=== PATIENT | female | born 1925 | race Caucasian/White ===

== ENCOUNTER 2017-11-24 12:49 | Inpatient (IN) | payer MEDICARE, OTHER ==
[~2017-11-24] VITALS: Ht 167.6 cm; Wt 71.6 kg
[~2017-11-24 12:49] MED LIST: ACEDIPPM PO; ALBU90OI INH; ASPI81CH PO; AZIT250 PO; AZIT500 PO; Albuterol2.5 MG/0.5 INH; CEFP200 PO; CEPH500; CEPH500 PO; CLAR500 PO; COLE625 PO; Citalopram HBr10 MG PO; DIGO.125 PO; FISH1000 PO; FURO20 PO; FURO40 PO; Hydrocodone-Ap1 EA23 PO; LAVAP17G PO; LEVFLO500 PO; LOSA25 PO; METO50 PO; MULVITA PO; Megestrol Aceta40 MG PO; NIAC250ER; NIAC500 PO; OMEP20ER PO; OMEP40CA12 PO; PRED20 PO; Potassium20 MEQ/11 PO; Prednisone20 MG PO; Prilosec Otc20 MG PO; RANI150 PO; Ranitidine HCl300 MG; Ranitidine HCl300 MG PO; SACC250C PO; SODCHL.65S; Venlafaxine HCl75 MG PO
[2017-11-24] MEDS ORDERED: VENL75ER PO (13:05)
[2017-11-24] MEDS ORDERED: Hydrocodone-Ap1 EA23 PO (13:06)
[2017-11-24] MEDS ORDERED: PANT20 PO (13:06)
[2017-11-24 15:05] LABS: BASOPHILS ABSOLUTE AUTO 0.03 K/mm3 (0.00-0.23); BASOPHILS PERCENT AUTO 0 % (0-2); EOSINOPHILS ABSOLUTE AUTO 0.06 K/mm3 (0.00-0.68); EOSINOPHILS PERCENT AUTO 0 % (0-6); Hematocrit 36.8 % (33.0-51.0); Hemoglobin 11.9 g/dL (11.5-16.0); IMMATURE GRAN ABSOLUTE AUTO 0.14 K/mm3 (0.00-0.10); IMMATURE GRAN PERCENT AUTO 1 % (0-1); LYMPHOCYTES ABSOLUTE AUTO 1.86 K/mm3 (0.84-5.20); LYMPHOCYTES PERCENT AUTO 13 % (21-46); MONOCYTES ABSOLUTE AUTO 0.76 K/mm3 (0.16-1.47); MONOCYTES PERCENT AUTO 5 % (4-13); Mean Corpuscular HGB 29.8 pg (26.0-34.0); Mean Corpuscular HGB Conc 32.3 g/dL (31.5-36.5); Mean Corpuscular Volume 92 fL (80-100); NEUTROPHILS ABSOLUTE AUTO 11.96 K/mm3 (1.96-9.15); NEUTROPHILS PERCENT AUTO 81 % (41-73); Platelet Count 302 K/mm3 (150-400); RDW Coefficient Variation 15.5 % (11.7-14.2); RDW Standard Deviation 52.6 fL (35.1-46.3); Red Blood Cell Count 3.99 M/mm3 (3.80-5.20); White Blood Cell Count 14.81 K/mm3 (4.00-11.30)
[2017-11-24 15:31] LABS: Alanine Aminotransfer (ALT/SGP 16 U/L (12-78); Albumin, Blood 2.6 g/dL (3.4-5.0); Albumin/Globulin Ratio 0.5 (0.8-1.8); Alk Phos 111 U/L (50-136); Anion Gap 9 mmol/L (6-16); Aspartate Aminotrans (AST/SGOT 14 U/L (12-37); Bilirubin, Total 0.7 mg/dL (0.1-1.0); Blood Urea Nitrogen 16 mg/dL (8-24); Bun/Creatinine Ratio 20.7 (12.0-20.0); CO2, Blood 30 mmol/L (21-32); Calcium, Blood 8.8 mg/dL (8.5-10.1); Chloride, Blood 97 mmol/L (98-108); Creatinine, Blood 0.77 mg/dL (0.40-1.00); Globulin, Blood 4.9 g/dL (2.2-4.0); Glomerular Filtration Rate >60 (60-); Glucose, Blood 115 mg/dL (70-99); Magnesium, Blood 2.3 mg/dL (1.6-2.4); Potassium, Blood 3.6 mmol/L (3.5-5.5); Sodium, Blood 136 mmol/L (136-145); Total Protein, Blood 7.5 g/dL (6.4-8.2); Troponin I 0.018 ng/mL (0.000-0.040)
[2017-11-24 21:46] LABS: Influenza A Negative (NEGATIVE); Influenza B Negative (NEGATIVE)
[2017-11-24 23:52] LABS: Source, Urine Voided
[2017-11-24 23:58] LABS: Bilirubin, Urine Neg (Neg); Blood, Urine Neg (Neg); Glucose Qualitative, Urine Neg (Neg); Ketones, Urine Neg (Neg); Leukocyte Esterase, Urine 1+ (Neg); Nitrite, Urine Neg (Neg); Protein, Urine Neg (Neg); Urobilinogen, Urine 1+ (Normal); pH, Urine 6.5 (5.0-8.0)
[2017-11-25 00:30] LABS: Appearance, Urine Clear (Clear); Bacteria Few /hpf; Color, Urine Yellow (P-Yellow); Red Blood Cells, Urine 0-2 /hpf (0-2); Squamous Epithelial Cells Not Seen /hpf (Few)
[2017-11-25 06:02] LABS: BASOPHILS ABSOLUTE AUTO 0.03 K/mm3 (0.00-0.23); BASOPHILS PERCENT AUTO 0 % (0-2); EOSINOPHILS ABSOLUTE AUTO 0.08 K/mm3 (0.00-0.68); EOSINOPHILS PERCENT AUTO 1 % (0-6); Hematocrit 34.4 % (33.0-51.0); Hemoglobin 11.1 g/dL (11.5-16.0); IMMATURE GRAN ABSOLUTE AUTO 0.09 K/mm3 (0.00-0.10); IMMATURE GRAN PERCENT AUTO 1 % (0-1); LYMPHOCYTES PERCENT AUTO 24 % (21-46); MONOCYTES ABSOLUTE AUTO 0.97 K/mm3 (0.16-1.47); MONOCYTES PERCENT AUTO 7 % (4-13); Mean Corpuscular HGB 29.6 pg (26.0-34.0); Mean Corpuscular HGB Conc 32.3 g/dL (31.5-36.5); Mean Corpuscular Volume 92 fL (80-100); Mean Platelet Volume 9.1 fL (9.1-12.4); NEUTROPHILS ABSOLUTE AUTO 9.22 K/mm3 (1.96-9.15); NEUTROPHILS PERCENT AUTO 68 % (41-73); Platelet Count 298 K/mm3 (150-400); RDW Coefficient Variation 15.6 % (11.7-14.2); RDW Standard Deviation 52.2 fL (35.1-46.3); Red Blood Cell Count 3.75 M/mm3 (3.80-5.20); White Blood Cell Count 13.59 K/mm3 (4.00-11.30)
[2017-11-25 06:31] LABS: Alanine Aminotransfer (ALT/SGP 12 U/L (12-78); Albumin, Blood 2.3 g/dL (3.4-5.0); Albumin/Globulin Ratio 0.5 (0.8-1.8); Alk Phos 101 U/L (50-136); Anion Gap 7 mmol/L (6-16); Aspartate Aminotrans (AST/SGOT 11 U/L (12-37); Bilirubin, Total 0.6 mg/dL (0.1-1.0); Blood Urea Nitrogen 19 mg/dL (8-24); Bun/Creatinine Ratio 25.9 (12.0-20.0); CO2, Blood 31 mmol/L (21-32); Calcium, Blood 8.6 mg/dL (8.5-10.1); Chloride, Blood 99 mmol/L (98-108); Creatinine, Blood 0.73 mg/dL (0.40-1.00); Globulin, Blood 4.6 g/dL (2.2-4.0); Glomerular Filtration Rate >60 (60-); Glucose, Blood 110 mg/dL (70-99); Potassium, Blood 3.5 mmol/L (3.5-5.5); Sodium, Blood 137 mmol/L (136-145); Total Protein, Blood 6.9 g/dL (6.4-8.2)
[2017-11-26] MEDS ORDERED: Calcitonin-Sal3.7 ML (11:35)
[2017-11-26] MEDS ORDERED: LIDOCAINE1 EACH TOP (11:37)
[2017-11-26] MEDS ORDERED: BENGAY ULTRA ST TOP (11:38)
[2018-01-28] MEDS ORDERED: Aspirin EC81 MG PO (15:08)
[2018-01-28] MEDS ORDERED: VENL75ER PO (15:09)
[2018-01-28] MEDS ORDERED: METO50 PO (15:09)
[2018-01-28] MEDS ORDERED: Omeprazole20 M1 PO (15:10)
[2018-01-28] MEDS ORDERED: FURO40 PO (15:10)
[2018-01-28] MEDS ORDERED: PRED10 PO (15:10)
[2018-01-28] MEDS ORDERED: HYDR1TAB94 PO (15:38)
[2018-01-28] MEDS ORDERED: LEVO750 PO (16:35)
[2018-01-29] MEDS ORDERED: ABAT250V (16:39)
[2018-01-29] MEDS ORDERED: NIAC500 PO (16:39)
[2018-01-29] MEDS ORDERED: CENTRUM SILVER1 EAC2 PO (16:40)
[2018-01-29] MEDS ORDERED: ERGO400 PO (16:41)
== END 2017-11-26 14:54 | disposition home health service (06) | DRG 196 ==
LOC: ER 12:49 → MEDS 16:36 → ENPENDDIS 11-26 10:53 → MEDS 11-26 14:54
PROVIDERS: Emergency Medicine; Family Medicine
DX: J84.112 Idiopathic pulmonary fibrosis (principal); J96.21 Acute and chronic respiratory failure with hypoxia; S32.019A Unspecified fracture of first lumbar vertebra, initial encounter for closed fracture; E78.5 Hyperlipidemia, unspecified; M85.80 Other specified disorders of bone density and structure, unspecified site; K21.9 Gastro-esophageal reflux disease without esophagitis; I10 Essential (primary) hypertension; Z85.828 Personal history of other malignant neoplasm of skin; Z88.0 Allergy status to penicillin; Z79.52 Long term (current) use of systemic steroids; Z79.82 Long term (current) use of aspirin; Z79.899 Other long term (current) drug therapy; Z91.81 History of falling
CPT/HCPCS: 36415; 71045; 71046; 72100; 80053; 81001; 83605; 83735; 84145; 84443; 84484; 85025; 87040; 87086; 87449; 87804; 93005; 93010; 94760; 94762; 96365; 97116; 97162; 97166; 97530; 97535; 99285; G8978; G8979; G8987; G8988; J0630; J1650; J1956; J7030